=== PATIENT | male | born 1980 | race Caucasian/White ===

== ENCOUNTER 2019-04-06 10:46 | Emergency (ER) | payer OTHER ==
[~2019-04-06] VITALS: Ht 193 cm; Wt 110.5 kg
[2019-04-06 10:49] VITALS: BP 145/91
== END 2019-04-06 12:22 ==
LOC: ED 11:10
DX: H66.001 Acute suppurative otitis media without spontaneous rupture of ear drum, right ear (principal)
CPT/HCPCS: 99283